=== PATIENT | male | born 1930 | race Caucasian/White ===

== ENCOUNTER 2016-09-18 08:08 | Emergency (ER) | payer MEDICARE, OTHER ==
[~2016-09-18] VITALS: Ht 175.3 cm; Wt 79.5 kg
[2016-09-18 08:18] VITALS: BP 142/93; PULSE 106; RESP 18; O2SAT 94
--- NOTE | 2016-09-18 08:26 | ED.REPORT ---
HPI-General Illness Date of Service Sep 18, 2016 ED Provider: Bayron Mancia MD The patient is an 86 year old male with history of atrial fibrillation, hypertension, and diabetes mellitus, who presents to the emergency department complaining of flu-like symptoms that began 2 weeks ago. He has experienced a productive cough, subjective fever, myalgias, loss of appetite, generalized weakness, and shakiness. His symptoms have gradually worsened since onset. He slipped off his bed last night and was unable to get himself up due to weakness. He did not hit his head or lose consciousness. He has developed a headache today. His and son have had similar symptoms over the last few weeks. He did not get a flu shot this year. He denies chills, abdominal pain, nausea, vomiting, diarrhea, chest pain, shortness of breath, dysuria or urinary symptoms. He denies history of asthma or COPD. Nursing Notes Stated Complaint: COUGHING/WEAKNESS Chief Complaint: FLU/Cold Symptoms Nursing Notes Reviewed: Yes Allergies: Coded Allergies: No Known Allergies (Unverified Allergy, Unknown, 10/29/14) Scheduled PRN Benzonatate (Tessalon Perle) 100 Mg Capsule 100 MG PO TID PRN PRN For Cough General Time Seen by MD: 08:25 Chief Complaint Flu-like illness Hx Obtained From: Patient, Son Arrived By: Walk-in Sudden in Onset?: No Onset Occurred: 1 week ago Symptom Duration: Since onset Severity: Current: No pain currently Severity: Maximum: No pain Recent Healthcare: No recent doctor visit, No recent hospitalization Similar Sx Previous: No Past Medical History Past Medical History Atrial fibrillation Reports: Diabetes mellitus, Hypertension Past Surgical History none reported Family History Noncontributory Smoking History Never Smoker Social History Lives on [place] with his son and [id number] Alcohol Use: Denies alcohol use Drug Use: Denies drug use Other Social History: Good social support, Lives with children, Local resident Ambulatory Status Independent Review of Systems +decreased appetite Full Review of Systems Constitutional: Reports: Fever (subjective), Weakness - generalized Respiratory: Reports: Prod cough, clear Cardiovascular: Denies: Chest pain GI: Denies: Abdominal pain, Diarrhea, Nausea, Vomiting Male: Denies Dysuria, Denies Hematuria, Denies Urinary frequency, Denies Urinary urgency, Denies Urination decreased, Denies Urination increased Musculoskeletal: Reports: Myalgia Neurologic: Reports: Headache, Shaking, Weakness, Denies: Change LOC, Syncope Complete sys rev & neg: except as marked. Physical Exam Vital Signs Vital Signs Date Time Temp Pulse Resp B/P Pulse Ox O2 Delivery O2 Flow Rate FiO2 09/18/16 10:31 38.7 102 21 130/82 91 Room Air 09/18/16 09:30 111 21 130/82 94 Nasal Cannula 2 09/18/16 08:18 37.7 106 18 142/93 94 Room Air Initial VS: Reviewed ENT: Mucous membranes moist, Conjunctiva normal, No scleral icterus Neck: Supple, Non-tender, Full range of motion Abdomen / GI: Soft, Non-tender, No guarding, No rebound, No distention Lymphatic: No lymphadenopathy Extremities: Vascular intact, Neuro intact, No swelling, No tenderness Skin: Warm, Dry, No cyanosis Neurologic: Alert, Oriented, Nonfocal Psychiatric: Mood/affect normal, Behavior normal, Normal thought content General/Constitutional: Awake, Alert, No acute distress, Cooperative Head / Eyes: Atraumatic, Normocephalic, PERRL, EOMI ENT: Atraumatic, Airway patent, Mucous membranes moist Respiratory / Chest: Atraumatic, Breath sounds NL, Breath sounds = bilat, No respiratory distress, No rales, No rhonchi, No wheezing Cardiovascular: Heart rate NL, No murmurs, Peripheral circulation NL, Pulses = bilaterally Heart Rate / Rhythm: Positive: Irreg irregular rhythm Upper Extremities Upper Extremity / MS: No deformity, Neurologic intact, Vascular intact Lower Extremity / Pelvis / MS: No deformity, Neurologic intact, Vascular intact Interpretation & Diagnostics Interpretation & Diagnostics: Negative for influenza A and B Lab Results Interpretation Result Diagram: 09/18/16 0841 09/18/16 0841 Test 09/18/16 08:41 White Blood Count 11.2th/mm3 (3.8-10.1) Red Blood Count 4.84mil/mm3 (4.40-5.80) Hemoglobin 14.8g/dL (13.8-17.2) Hematocrit 45.6% (41.0-50.0) Mean Corpuscular Volume 94.2fL (81-100) Mean Corpuscular Hemoglobin 30.6pg (27.0-35.0) Mean Corpuscular Hemoglobin Concent 32.5% (32.0-37.0) Red Cell Distribution Width 12.9% (12.3-15.4) Platelet Count 220bil/L (150-400) Neutrophils (%) (Auto) 79.9% (40-74) Lymphocytes (%) (Auto) 6.7% (14-46) Monocytes (%) (Auto) 12.0% (4-12) Eosinophils (%) (Auto) 0.3% (0-5) Basophils (%) (Auto) 0.4% (0-3) Prothrombin Time 19.3sec (8.1-12.5) Prothromb Time International Ratio 1.78ratio Sodium Level 134mEq/L (134-144) Potassium Level 4.7mEq/L (3.5-5.2) Chloride Level 97mEq/L (97-108) Carbon Dioxide Level 23mmol/L (18-29) Blood Urea Nitrogen 16mg/dL (8-27) Creatinine 0.93mg/dL (0.76-1.27) Estimat Glomerular Filtration Rate 82mL/min (>59) Glucose Level 145mg/dL (60-99) Calcium Level 8.4mg/dL (8.5-10.1) Total Bilirubin 0.7mg/dL (0.0-1.2) Aspartate Amino Transf (AST/SGOT) 26U/L (0-50) Alanine Aminotransferase (ALT/SGPT) 16U/L (0-44) Alkaline Phosphatase 55U/L (25-160) Total Protein 6.2g/dL (6.4-8.4) Albumin 3.4g/dL (3.4-5.0) Hold Griffin Top Tube Received (Received) ECG Interpretation ECG Interpretation: Atrial fibrillation with a rate of 98 bpm Normal axis Normal intervals No ST segment changes No T wave abnormalities When compared to prior dated 09/18/2016 there are no acute changes present Time: 09:05 Interpreted by: ED physician X-Ray Chest Interpretation Chest Xray Interpretation: IMPRESSION: Cardiomegaly, without acute cardiopulmonary disease. Dictated by: Liu Brush M.D. on 09/18/2016 at 9:16 View: AP & lat Interpretation / Wet Read by: Interpret - Radiologist Re-Eval/Medical Decision Med Decision/Clinical Course The patient is an 86 year old male with history of atrial fibrillation, hypertension, and diabetes mellitus, who presents to the emergency department complaining of flu-like symptoms that began 2 weeks ago. He has experienced a productive cough, subjective fever, myalgias loss of appetite, generalized weakness, and shakiness. His symptoms have gradually worsened since onset. Both the patient's son and with whom he lives with had similar symptoms. Daily emergency department the patient is borderline febrile with a temperature of 37.7 with otherwise stable vital signs in no apparent distress. EKG was obtained interpreted by myself as documented above. Of note he is in atrial fibrillation and borderline tachycardic though this is his regular baseline. Here in the emergency department the patient was treated with IV fluids and Tylenol. He reported subjective improvement and stated that he felt much better. CXR: Obtained, reviewed and interpreted by myself shows no evidence of acute infiltrates, effusions or pneumothorax. Cardiac and mediastinal silhouette normal. No bony or soft tissue abnormalities. Laboratory studies obtained as below: Negative for influenza A and B LABS: leukocytosis of 11.2, CBC other unremarkable, INR 1.78, CMP unremarkable except for mild hyperglycemia with a glucose of 145 CXR negative Cause of the patient's symptoms remains unclear. Overall presentation is most consistent with viral or flulike illness. He does report falling but did not strike his head. I do not feel that neuro imaging studies are indicated. His neurologic examination is completely nonfocal. He is not complaining of any significant headache. He is slightly subtherapeutic on his Coumadin. Laboratory studies are otherwise relatively unremarkable. His complaints are very much respiratory in nature though his chest x-ray demonstrates no focal consolidation suggestive of bacterial pneumonia. He has absolutely no urinary symptoms and has not provided us with a urine sample. My suspicion for urinary tract infection is relatively low. Abdominal examination is completely benign without any guarding, rigidity or tenderness. I do not feel that abdominal imaging studies are indicated. Here in the emergency department the patient reports feeling significantly better. I feel he is appropriate for discharge home and he may follow-up with his primary care physician. Alternatively precautions were reviewed in detail and he was discharged in good condition. He did become more febrile with the acetaminophen has not necessarily had time to take effect. Despite this, he felt significantly improved and wished to be discharged home. He is accompanied by his son and we had a long discussion about the importance of bringing him back immediately should he develop any worsening symptoms. He has an appointment on the with his primary care physician and they will call first thing on Monday to move this appointment forward. Given his good outpatient support I feel that this is reasonable. Source of Hx: Old records Time of Eval: 10:36 Re-Evaluation/Progress Note: Rechecked the patient. He is feeling better. Discussed results, diagnosis, and plan for discharge. All questions were addressed. Counseled Regarding: Diagnosis, Lab results, Need for follow-up, When/why to return to ED Discharge & Departure Primary Impression: Cough Additional Impressions: Myalgia Fever Fever type: unspecified Qualified Code: R50.9 - Fever, unspecified Body aches Fall from ground level Disposition: Home Discharge Condition All VS Reviewed: Yes Condition: Stable Additional Instructions: Thank you for seeking care at the emergency room. It is difficult for us to make definitive diagnoses in the ED but we believe that you are experiencing a viral illness. Our primary goal today in the ED was to evaluate you for any life-threatening conditions. Your evaluation was reassuring. Use Tylenol as needed for your fever and discomfort. Use the Tessalon Pearls as needed for your cough. Call your primary care provider on Monday to schedule a followup appointment. You should return to the ED immediately if you develop fevers, vomiting, worsening cough, increased fatigue, shortness of breath, chest pain, abdominal pain, dysuria, lightheadedness, weakness or any other concerning signs or symptoms. Thank you for letting us partake in your care today. Referrals: Juan Pablo Albert Attestation Portions of this note were transcribed by Caren Hernández. I, Dr. Mancia personally performed the history, physical exam and medical decision-making; I reviewed and confirmed the accuracy of the information in the transcribed note. Signed by: Annie Conley, 09/17/2015 and 1045. copies to: Juan Pablo Albert Beck O MD Sep 18, 2016 08:26 Caren Hernández Sep 18, 2016 08:41
[2016-09-18 08:51] LABS: BASOPHILS % (AUTO) 0.4 % (0-3); EOSINOPHILS % (AUTO) 0.3 % (0-5); Mean Corpuscular Hemoglobin 30.6 pg (27.0-35.0); Mean Corpuscular Volume 94.2 fL (81-100); NEUTROPHILS % (AUTO) 79.9 % (40-74); Platelet Count 220 bil/L (150-400)
[2016-09-18 09:07] LABS: INR 1.78 ratio
--- NOTE | 2016-09-18 09:18 | DRSVH ---
PROCEDURE: X-RAY CHEST, TWO VIEWS ([id number]) INDICATIONS: 86 year-old male with cough and fevers. TECHNIQUE: 2 views of the chest were acquired. COMPARISON: [facility], CR, XR CHEST 2VW, 05/11/2015, 9:33. [facility], CR , XR CHEST 2VW, 05/06/2015, 9:18. [facility], CR, CHEST 1VW (PORTABLE), 10/29/2014, 8:16. FINDINGS: Surgical changes and devices: None. Lungs and pleura: No pleural effusions or pneumothorax. Lungs are clear. Mediastinum: Mediastinal contours are normal. Mild cardiomegaly is unchanged. Bones and chest wall: No suspicious bony abnormalities. Soft tissues appear unremarkable. IMPRESSION: Cardiomegaly, without acute cardiopulmonary disease. Dictated by: Liu Brush M.D. on 09/18/2016 at 9:16 Approved by: Liu Brush M.D. on 09/18/2016 at 9:16
[2016-09-18 09:30] VITALS: BP 130/82; PULSE 111; RESP 21; O2SAT 94
[2016-09-18] MEDS ORDERED: 0.9% Sodium Chloride 1,000 ML IV ONE (09:30)
[2016-09-18 10:31] VITALS: BP 130/82; PULSE 102; RESP 21; O2SAT 91
[2016-09-18] MEDS ORDERED: BENZ-12 PO (10:43)
[2016-09-18 10:59] VITALS: BP 130/82; PULSE 102; RESP 21; O2SAT 91
== END 2016-09-18 10:59 | disposition home or self-care (01) ==
LOC: SED 08:08
DX: R05 Cough (principal); M79.1 Myalgia; R50.9 Fever, unspecified; W06.XXXA Fall from bed, initial encounter; Y92.9 Unspecified place or not applicable; Y93.89 Activity, other specified; Y99.8 Other external cause status; I48.91 Unspecified atrial fibrillation; E11.9 Type 2 diabetes mellitus without complications; I10 Essential (primary) hypertension
CPT/HCPCS: 36415; 71020; 80053; 85025; 85610; 87804; 93005; 96360; 99285; J7030